=== PATIENT | female | born 1995 | race Caucasian/White ===

== ENCOUNTER 2019-05-04 18:32 | Emergency (ER) | payer MEDICAID ==
[~2019-05-04] VITALS: Ht 167.6 cm; Wt 137.0 kg
[2019-05-04] MEDS ORDERED: DEXAMETHASONE 0.5MG/5ML ORAL SYR PO ONE (21:15)
[2019-05-04] MEDS ORDERED: KETOROLAC 60MG/2ML VIAL IM ONE (21:15)
[2019-05-04] MEDS ORDERED: HYDROCODONE/ACETAMINOPHEN 5/325MG TABLET PO ONE (21:15)
[2019-05-04] MEDS ORDERED: DEXAMETHASONE 4MG TABLET PO ONE (22:00)
[2019-05-04 22:07] VITALS: BP 144/79
== END 2019-05-04 22:07 | disposition home or self-care (01) ==
LOC: ER 18:32
DX: J02.9 Acute pharyngitis, unspecified (principal); J45.909 Unspecified asthma, uncomplicated
CPT/HCPCS: 96372; 99283; J1885; J8540